=== PATIENT | male | born 1975 | race Caucasian/White ===

== ENCOUNTER 2020-06-04 08:33 | Day surgery (SDC) | payer OTHER ==
[2020-05-29 16:27] LABS: BASOPHILS # (AUTO) 0.1 X10'3 (0-0.2); BASOPHILS % (AUTO) 0.8 % (0-1); EOSINOPHILS # (AUTO) 0.3 X10'3 (0-0.9); EOSINOPHILS % (AUTO) 3.7 % (0-6); LYMPHOCYTES # (AUTO) 2.7 X10'3 (1.1-4.8); LYMPHOCYTES % (AUTO) 32.9 % (21-51); MEAN CORPUSCULAR HEMOGLOBIN 28.5 PG (27.0-31.0); MEAN CORPUSCULAR HGB CONC 32.5 g/dL (33.0-36.5); MEAN CORPUSCULAR VOLUME 87.8 FL (78-98); MEAN PLATELET VOLUME 7.5 FL (7.4-10.4); MONOCYTES # (AUTO) 0.7 X10'3 (0-0.9); NEUTROPHILS # (AUTO) 4.5 X10'3 (1.8-7.7); NEUTROPHILS % (AUTO) 54.6 % (42-75); PRE OP HEMATOCRIT 50.5 % (42.0-52.0); PRE OP HEMOGLOBIN 16.4 g/dL (14.0-17.9); PRE OP PLATELET COUNT 285 X10'3 (140-440); RED BLOOD COUNT 5.75 X10'6 (4.70-6.10); RED CELL DISTRIBUTION WIDTH 14.6 % (11.5-14.5)
[2020-05-29 16:41] LABS: ALKALINE PHOSPHATASE 87 IU/L (46-116); BLOOD UREA NITROGEN 14 MG/DL (7-18); BUN/CREATININE RATIO 16.3 (5.4-32.0); CALCIUM 9.8 MG/DL (8.5-10.1); CHLORIDE 105 MMOL/L (99-107); CREATININE 0.86 MG/DL (0.60-1.10); PRE OP ALT 21 U/L (30-65); PRE OP ANION GAP 8 (8-16); PRE OP AST 20 U/L (10-37); PRE OP BILIRUB, TOTAL 0.4 MG/DL (0.0-1.0); PRE OP GLUCOSE 91 MG/DL (70-104); PRE OP SODIUM 142 MMOL/L (135-145); TOTAL PROTEIN 8.1 G/DL (6.4-8.2); eGFR > 90 ML/MIN
[~2020-06-04] VITALS: Ht 170.2 cm; Wt 103.0 kg
[2020-06-04] VITALS (17 sets, daily range): BP systolic 92–152; BP diastolic 56–86
[2020-06-04] MEDS: gabapentin 300mg capsule PO SCH ×3 (08:00→23:53)
[~2020-06-04 08:33] MED LIST: ALUM35SO TP; ANAS1TAB24 PO; CALC600T22 PO; Cefazolin 2GM/100ML NS IVPB 100 ML IV ONE; HYDROcodone/acetaminophen 10/325mg tab PO PRN; HYDROmorphone 1 mg/ml syringe IV PRN; HYDROmorphone inj. 0.5 MG/0.5 ML DISP.SYRIN IV PRN; MULT-269 PO; NAPR-56 PO; OMEG1CAP2 PO; POTA10TA21 PO; TEST200V10 IM; acetaminophen 325mg tablet PO ONE; acetaminophen 325mg tablet PO PRN; bisacodyl 10mg suppository rectal RC PRN; celeCOXIB 100mg capsule PO ONE; diphenhydrAMINE 25mg capsule PO PRN; famotidine 20mg tablet PO ONE; gabapentin 300mg capsule PO ONE; magnesium hydroxide 30ml (MOM) UD suspension PO PRN; metoclopramide 5 mg/ml inj IV ONE; ondansetron/PF 4mg/2ml inj IV PRN; oxyCODONE SR 10mg (sust. release) tab -2 tabs (20mg) PO ONE; tranexamic acid 1gm/0.7% sal. 100 ML IV ONE; vancomycin 1,500 MG in NS 300ml IV soln IV ONE
[2020-06-04] MEDS: ringers solution, lacted 1,000 ML IV SCH ×2 (10:01→17:10)
[2020-06-04] MEDS ORDERED: epiNEPHrine 1 mg/ml inj ONE (12:05)
[2020-06-04] MEDS ORDERED: ketorolac trometh. 30mg/ml inj. ONE (12:05)
[2020-06-04] MEDS ORDERED: cloNIDine hcl/PF 100mcg/ml inj ONE (12:05)
[2020-06-04] MEDS ORDERED: vancomycin 1,000mg inj ONE (12:05)
[2020-06-04] MEDS ORDERED: ROPIVAcaine 0.5% (5mg/ml) 30ml vial ONE (12:06)
[2020-06-04] MEDS ORDERED: propofol inj 20 ML IV ONE ×2 (13:22)
[2020-06-04] MEDS ORDERED: ePHEDrine 50MG/ML INJ. ONE ×2 (13:22)
[2020-06-04] MEDS ORDERED: MIDAZolam 1 MG/ML 5ML VIAL ONE (13:22)
[2020-06-04] MEDS ORDERED: ringers solution, lacted 1,000 ML IV SCH (14:05)
[2020-06-04] MEDS ORDERED: hydrALAZINE 20mg/ml inj. IV PRN (14:05)
[2020-06-04] MEDS ORDERED: acetaminophen 1,000mg/100ml IV 100 ML IV PRN (14:05)
[2020-06-04] MEDS ORDERED: morphine 4 MG/ML inj SYRINge IV PRN (14:05)
[2020-06-04] MEDS ORDERED: morphine 2 MG/ML inj. syringe IV PRN (14:05)
[2020-06-04] MEDS ORDERED: proCHLORperazine 10 MG/2 ml inj IV PRN (14:05)
[2020-06-04] MEDS ORDERED: meperidine/PF 25mg/ml syringe IV PRN ×3 (14:05)
[2020-06-04] MEDS ORDERED: labetalol 20mg/4ml (5mg/ml) syringe IV PRN (14:05)
[2020-06-04] MEDS ORDERED: ondansetron/PF 4mg/2ml inj IV PRN (14:05)
--- NOTE | 2020-06-04 14:05 | NUR ---
ADMITTED TO PACU FROM OR ACCOMPANIED BY ANESTHESIA. INTIAL PHYSICAL ASSESSMENT DONE AND RECORDED. REPORT RECEIVED FROM ANESTHESIA.
--- NOTE | 2020-06-04 15:15 | NUR ---
PACU DISCHARGE CRITERIA MET, REPORT GIVEN TO FLOOR. DENIES PAIN OR DISCOMFORT, TRANSFERRED TO ROOM IN STABLE GOOD CONDITION.
[2020-06-04] MEDS: multivitamins, therapeutics tablet PO SCH (16:07)
[2020-06-04] MEDS: ascorbic acid 500mg tablet PO SCH ×2 (16:08→23:53)
[2020-06-04] MEDS: aspirin 325mg tablet PO SCH (16:08)
[2020-06-04] MEDS: Cefazolin 2GM/100ML NS IVPB 100 ML IV SCH ×2 (16:41→23:53)
[2020-06-04] MEDS: HYDROcodone/acetaminophen 10/325mg tab PO PRN ×2 (18:22→22:40)
[2020-06-04] MEDS ORDERED: tranexamic acid 1gm/0.7% sal. 100 ML IV ONE (19:00)
--- NOTE | 2020-06-04 19:28 | NUR ---
nause with emesis 60 min after norco. zofran given. patient has voided, only ate sandwich post op. norco given after sandwich.
[2020-06-04] MEDS ORDERED: sennosides 8.6mg tablet PO SCH (21:00)
[2020-06-05 01:56] VITALS: BP 117/73
[2020-06-05] MEDS: HYDROcodone/acetaminophen 10/325mg tab PO PRN (03:31)
[2020-06-05] MEDS: ringers solution, lacted 1,000 ML IV SCH (03:34)
[2020-06-05 06:00] VITALS: BP 125/71
--- NOTE | 2020-06-05 06:41 | NUR ---
reported to days. anticipate discharge today if pain controlled. Dr. Randall saw patient - changed pain meds to percocet
[2020-06-05] MEDS ORDERED: oxyCODONE/APAP 10/325mg tablet PO PRN (06:45)
[2020-06-05 06:46] LABS: BASOPHILS % (AUTO) 0.2 % (0-1); EOSINOPHILS % (AUTO) 0.1 % (0-6); HEMATOCRIT 41.8 % (42.0-52.0); HEMOGLOBIN 13.7 g/dl (14.0-17.9); LYMPHOCYTES # (AUTO) 1.3 X10'3 (1.1-4.8); LYMPHOCYTES % (AUTO) 15.3 % (21-51); MEAN CORPUSCULAR HEMOGLOBIN 28.6 PG (27.0-31.0); MEAN CORPUSCULAR HGB CONC 32.6 g/dL (33.0-36.5); MEAN CORPUSCULAR VOLUME 87.5 FL (78-98); MEAN PLATELET VOLUME 8.1 FL (7.4-10.4); MONOCYTES % (AUTO) 11.1 % (2-12); NEUTROPHILS # (AUTO) 6.4 X10'3 (1.8-7.7); NEUTROPHILS % (AUTO) 73.3 % (42-75); PLATELET COUNT 247 X10'3 (140-440); RED BLOOD COUNT 4.78 X10'6 (4.70-6.10); RED CELL DISTRIBUTION WIDTH 14.1 % (11.5-14.5); WHITE BLOOD COUNT 8.8 X10'3 (4.5-11.0)
[2020-06-05 07:05] LABS: ANION GAP 7 (8-16); CHLORIDE 104 MMOL/L (99-107); POTASSIUM 3.8 MMOL/L (3.5-5.1); SODIUM 141 MMOL/L (135-145); TOTAL CARBON DIOXIDE 29.7 MMOL/L (24-32)
[2020-06-05] MEDS: multivitamins, therapeutics tablet PO SCH (07:48)
[2020-06-05] MEDS: gabapentin 300mg capsule PO SCH ×2 (07:48→13:00)
[2020-06-05] MEDS: ascorbic acid 500mg tablet PO SCH (07:48)
[2020-06-05] MEDS: aspirin 325mg tablet PO SCH (07:48)
[2020-06-05] MEDS: oxyCODONE/APAP 10/325mg tablet PO PRN ×2 (07:54→13:00)
[2020-06-05 10:00] VITALS: BP 134/85
[2020-06-05] MEDS ORDERED: gabapentin capsule PO (11:23)
--- NOTE | 2020-06-05 12:27 | NUR ---
\Joint replacement consult: Pt seen by JOHN for written/verbal high protein ed w/ RD contact information provided. Pt declines additional proteins at this time reports appetite slightly lower than normal but good appetite at home without specific food preferences this AM. Addendum: 06/05/20 at [address] Amended: Links added.
[2020-06-05] MEDS ORDERED: CELE100C98 PO (13:41)
[2020-06-05] MEDS ORDERED: ASPI-1 PO (13:41)
[2020-06-05] MEDS ORDERED: OXYC-658 PO (14:46)
[2020-06-05] MEDS ORDERED: celeCOXIB 100mg capsule PO SCH (20:00)
[2020-06-06] MEDS ORDERED: anastrozole 1 MG tablet PO SCH (08:00)
== END 2020-06-05 15:55 | disposition home or self-care (01) ==
LOC: PAS 08:33 → ORTHO 4S 16:06 → PAS 06-05 15:55
PROVIDERS: ATTEND Orthopaedic Surgery
DX: M16.12 Unilateral primary osteoarthritis, left hip (principal); E66.9 Obesity, unspecified; Z68.31 Body mass index [BMI] 31.0-31.9, adult; Z20.822 Contact with and (suspected) exposure to COVID-19; Z98.890 Other specified postprocedural states; Z79.899 Other long term (current) drug therapy; Z79.82 Long term (current) use of aspirin
CPT/HCPCS: 27130; 36415; 72170; 80051; 80053; 82948; 85025; 86885; 86900; 86901; 87081; 97110; 97116; 97162; 97530; C1776; J0171; J0690; J0735; J1170; J1885; J2250; J2405; J2704; J2765; J3370; J7040; J7120; Q0163; U0003; A7000; G0378; J2795